=== PATIENT | female | born 1985 | race Caucasian/White ===

== ENCOUNTER → 2017-04-27 | Outpatient (CLI) | payer OTHER ==
--- NOTE | 2017-04-27 11:04 | KCIC ---
OB ultrasound dated 04/27/2017: No comparison available. Clinical Indication: Uterine size discrepancy. Findings: There is a single intrauterine gestation in breech presentation. The placenta is posterior in location and low lying with placental tip estimated at 1.3 to 2 cm from the internal os. Cervical length is estimated at 4.2 cm. CK equals 19.3 cm. Biometrical data is as follows: BPD = 8.9 cm for 35 weeks 6 days. HC = 31.9 cm for 36 weeks 0 days. AC = 31.7 cm for 35 weeks 4 days. FL = 6.9 cm for 35 weeks 1 days. Overall, the estimated sonographic gestational age is 35 weeks 5 days for an estimated date of delivery of 05/27/2017. This is approximately 7 days off the tape estimated by the last menstrual period. Estimated weight is 2707 g. Complete survey was not performed. heart rate 131 bpm Impression: 1. Single viable intrauterine gestation with estimated sonographic gestational age of 35 weeks 5 days. This is approximately one week off the dates estimated by last menstrual. Recommend clinical correlation. 2. Low-lying placenta. Electronically signed by: Mihir Roy MD (04/27/2017 11:01 AM) [facility]
== END | disposition home or self-care (01) ==
LOC: KCIC US 08:06
PROVIDERS: ATTEND Obstetrics & Gynecology
DX: O44.43 Low lying placenta NOS or without hemorrhage, third trimester (principal); Z3A.35 35 weeks gestation of pregnancy
CPT/HCPCS: 76816

== ENCOUNTER 2017-05-31 06:09 | Inpatient (IN) | payer OTHER ==
[~2017-05-31] VITALS: Ht 154.9 cm; Wt 119.7 kg
[2017-05-31] MEDS ORDERED: IV RINGERS,LACTATED 1000ML 1,000 ML IV SCH ×2 (06:10→14:20)
[2017-05-31] MEDS ORDERED: TERBUTALINE 1 MG/ML VIAL. SQ PRN (06:15)
[2017-05-31] MEDS ORDERED: IBUPROFEN 600 MG TABLET. PO PRN (06:15)
[2017-05-31] MEDS ORDERED: OXYTOCIN 30 UNIT/500 ML PREMIX 500 ML IV PRN ×3 (06:15→16:45)
[2017-05-31] MEDS ORDERED: BUTORPHANOL 2 MG/ML VIAL. IV PRN (06:15)
[2017-05-31] MEDS ORDERED: LIDOCAINE 1% PF 30 ML VIAL. INJ PRN (06:15)
[2017-05-31] MEDS ORDERED: ONDANSETRON PF 4 MG/2 ML VIAL. IV PRN (06:15)
[2017-05-31] MEDS ORDERED: 0.9 % SODIUM CHLORIDE 10 ML DISP.SYRIN. IV PRN ×2 (06:15→16:45)
[2017-05-31 06:36] VITALS: BP 130/83
[2017-05-31 07:08] LABS: HEMATOCRIT 39.4 % (36.0-47.0); HEMOGLOBIN 13.4 g/dL (12.0-15.5); RED BLOOD COUNT 4.39 x10^6/uL (3.50-5.40); RED CELL DISTRIBUTION WIDTH 13.3 % (11.5-14.5); WHITE BLOOD COUNT 17.8 x10^3/uL (4.0-11.0)
[2017-05-31 07:11] LABS: BILIRUBIN,URINE NEGATIVE (NEG); GLUCOSE,URINE NEGATIVE (NEG); NITRITE,URINE NEGATIVE (NEG); PROTEIN,URINE NEGATIVE (NEG-TRACE)
[2017-05-31 07:13] LABS: BACTERIA,URINE FEW /HPF (0-FEW); RBC,URINE 0 /HPF (0-2); SQUAMOUS EPITHELIAL CELL,UR OCC /LPF
[2017-05-31 07:17] LABS: BARBITURATES NEG (NEG); BENZODIAZEPINES NEG (NEG); CANNABINOIDS POS (NEG); COCAINE NEG (NEG); METHADONE NEG (NEG); OPIATES NEG (NEG); PHENCYCLIDINE NEG (NEG)
[2017-05-31] MEDS ORDERED: IV RINGERS,LACTATED 1000ML 1,000 ML IV PRN (08:20)
--- NOTE | 2017-05-31 13:00 | PDOC1 ---
OB - History Hx of Present Care: Good Care Ultrasounds: Normal mid trimester US Obstetrical Complications: None Medical Complications: None Other Concerns: obesity Past Family/Social History * Past Medical, Surgical, Family and Obstetric Histories reviewed from chart. Rubella: Immune RPR/VDRL: Negative GBS Status: Negative HBsAG: Negative OB - Chief Complaint & HPI Date of Admission: Date of Admission: May 31, 2017 at 06:09 Chief Complaint/History : 4 Para: 3 EGA: 39 Reason for admission: induction of labor Indication for induction: maternal discomfort, history of rapid labor Admission Nurse Assessment Rev: Yes Problems: OB - Admission Exam Physical Exam Vitals: VS - Last 72 Hours, by Label Date Time Temp Pulse Resp B/P (MAP) Pulse Ox O2 Delivery O2 Flow Rate FiO2 05/31/17 06:36 98.3 86 18 130/83 (99) Room Air 98.3 HEENT: Normal Heart: Regular Rate Lungs: Clear Abdomen: Gravid, Non tender, Soft Extremities: Edema Reflexes: Normal Cervical Dilatation: 1cm Effacement: 25% Station: -3 Membranes: Intact Heart Rate: Normal Accelerations: Accelerations Present Decelerations: No decelerations Contractions on Admission: < 5 Minutes Apart Intensity: Moderate Text A: 39 wks IUP IOL secondary discomforts of P: Admit for IOL pitocin. MORELIA HESS Jr, MD May 31, 2017 13:00
[2017-05-31] MEDS ORDERED: L&D EPIDURAL CASSETTE 100 ML EP PRN (14:30)
[2017-05-31] MEDS ORDERED: ROPIVacaine 0.2% IN 0.9%NACL PF 40 MG/20 ML DISP.SYRIN. EPI PRN (14:30)
[2017-05-31] MEDS ORDERED: BUPIVACAINE MPF 0.25% 10 ML VIAL. EPI PRN (14:30)
[2017-05-31] MEDS ORDERED: NALOXONE 0.4 MG/ML VIAL. IV PRN (14:30)
[2017-05-31] MEDS ORDERED: fentaNYL PF VIAL 100 MCG/2 ML VIAL EPI PRN (14:30)
[2017-05-31] MEDS ORDERED: MAGNESIUM HYDROXIDE 2,400 MG/30 ML ORAL.SUSP. PO PRN (16:45)
[2017-05-31] MEDS ORDERED: DOCUSATE SODIUM 100 MG CAPSULE. PO PRN (16:45)
[2017-05-31] MEDS ORDERED: oxyCODONE/APAP 5/325 1 TAB TABLET PO PRN (16:45)
[2017-05-31] MEDS ORDERED: PHENYLEPH/MINERAL OIL/PETROLAT RECTAL OINTMENT 28GM TUBE. RC PRN (16:45)
[2017-05-31] MEDS ORDERED: BENZOCAINE 20% TOPICAL AEROSOL SPRAY 57GM CAN. TP PRN (16:45)
[2017-05-31] MEDS ORDERED: ZOLPIDEM 5 MG TABLET. PO PRN (16:45)
[2017-05-31] MEDS ORDERED: MAG HYDROX/ALUMINUM HYD/SIMETH 30 ML ORAL.SUSP PO PRN (16:45)
[2017-05-31] MEDS ORDERED: diphenhydrAMINE HCL 25 MG CAPSULE PO PRN (16:45)
[2017-05-31] MEDS ORDERED: SIMETHICONE 80 MG TAB.CHEW PO PRN (16:45)
[2017-05-31] MEDS ORDERED: MMR per PROTOCOL. MC PRN (16:45)
[2017-05-31] MEDS ORDERED: HYDROCORTISONE 1% TOPICAL OINTMENT 30GM TUBE. TP PRN (16:45)
[2017-05-31] MEDS ORDERED: ACETAMINOPHEN 325 MG TABLET. PO PRN (16:45)
--- NOTE | 2017-05-31 16:45 | PDOC ---
VAGINAL DELIVERY DATE DATE: 05/31/17 TIME: 16:44 : 4 Para: 4 EGA: 39 VAGINAL DELIVERY: VTX VACCUM ASSISTED: Yes NUMBER OF PULLS 5 NUMBER OF POP OFFS 3 MAXIMUM PRESSURE 600 mmgh PLACENTA: Spontaneous 8/9 SEX: Male WEIGHT Weight [7 lbs. 4 oz. ] Nuchal Cord: Yes, Times 1 Amniotic Fluid: Clear PAIN: Epidural EPISIOTOMY: No EXTENSION: No EBL 300 ml COMPLICATIONS none CONDITION pt. stable Signs of Intrauterine Infectio: None Shoulder Dystocia: No Problems: MORELIA HESS Jr, MD May 31, 2017 16:45
[2017-05-31 20:49] VITALS: BP 104/54
[2017-05-31] MEDS ORDERED: INFLUENZA VAX SCREEN BY RX. MC ONE (21:00)
[2017-05-31 21:30] VITALS: BP 121/68
[2017-06-01] VITALS (7 sets, daily range): BP systolic 114–126; BP diastolic 61–83
[2017-06-01] MEDS: IBUPROFEN 800 MG TABLET. PO PRN ×2 (03:21→16:39)
[2017-06-01] MEDS ORDERED: INFLUENZA VAX SCREEN BY RX. MC PRN (04:45)
[2017-06-01 07:13] LABS: BASO # 0.1 x10^3/uL (0.0-0.2); BASO % 1 % (0-3); EOS % 3 % (0-3); HEMOGLOBIN 12.2 g/dL (12.0-15.5); LYMPH # 4.3 x10^3/uL (1.0-4.8); LYMPH % 23 % (24-48); MEAN CORPUSCULAR HEMOGLOBIN 31 pg (25-35); MEAN CORPUSCULAR HGB CONC 34 g/dL (31-37); MEAN CORPUSCULAR VOLUME 91 fL (79-100); MONO % 7 % (0-9); NEUT % 67 % (31-73); PLATELET COUNT 326 x10^3/uL (140-400); RED BLOOD COUNT 3.96 x10^6/uL (3.50-5.40); RED CELL DISTRIBUTION WIDTH 13.1 % (11.5-14.5); WHITE BLOOD COUNT 18.6 x10^3/uL (4.0-11.0)
[2017-06-01] MEDS ORDERED: FERROUS SULFATE 325 MG TABLET. PO SCH (08:00)
[2017-06-01] MEDS ORDERED: FLU VACC QS2017-18 (36MOS+)/PF 0.5 ML SYRINGE. VAX IM ONE (09:00)
[2017-06-01] MEDS ORDERED: DIPHTH,PERTUSS(ACELL),TET TOX 0.5 ML DISP.SYRIN. VAX IM ONE (09:00)
[2017-06-01] MEDS ORDERED: NICOTINE 14MG PATCH. TD PRN (10:45)
--- NOTE | 2017-06-01 12:22 | PDOC ---
OB Progress Note Date of Service 06/01/17 Time of Evaluation 1220 Notes Pt. feeling well. No complaints. Lab Laboratory Tests Test 05/31/17 06:30 05/31/17 07:00 06/01/17 06:00 White Blood Count 17.8 x10^3/uL (4.0-11.0) 18.6 x10^3/uL (4.0-11.0) Red Blood Count 4.39 x10^6/uL (3.50-5.40) 3.96 x10^6/uL (3.50-5.40) Hemoglobin 13.4 g/dL (12.0-15.5) 12.2 g/dL (12.0-15.5) Hematocrit 39.4 % (36.0-47.0) 36.0 % (36.0-47.0) Mean Corpuscular Volume 90 fL (79-100) 91 fL (79-100) Mean Corpuscular Hemoglobin 31 pg (25-35) 31 pg (25-35) Mean Corpuscular Hemoglobin Concent 34 g/dL (31-37) 34 g/dL (31-37) Red Cell Distribution Width 13.3 % (11.5-14.5) 13.1 % (11.5-14.5) Platelet Count 373 x10^3/uL (140-400) 326 x10^3/uL (140-400) RPR Titer Additional Testing Negative (Non Reactive) Urine Collection Type Unknown Urine Color Yellow Urine Clarity Cloudy Urine pH 6.0 Urine Specific [place] 1.025 Urine Protein Negative mg/dL (NEG-TRACE) Urine Glucose (UA) Negative mg/dL (NEG) Urine Ketones (Stick) Negative mg/dL (NEG) Urine Blood Negative (NEG) Urine Nitrite Negative (NEG) Urine Bilirubin Negative (NEG) Urine Urobilinogen Dipstick 1.0 mg/dL (0.2 mg/dL) Urine Leukocyte Esterase Large (NEG) Urine RBC 0 /HPF (0-2) Urine WBC 5-10 /HPF (0-4) Urine Squamous Epithelial Cells Occ /LPF Urine Bacteria Few /HPF (0-FEW) Urine Opiates Screen Neg (NEG) Urine Methadone Screen Neg (NEG) Urine Barbiturates Neg (NEG) Urine Phencyclidine Screen Neg (NEG) Urine Amphetamine/Methamphetamine Neg (NEG) Urine Benzodiazepines Screen Neg (NEG) Urine Cocaine Screen Neg (NEG) Urine Cannabinoids Screen Pos (NEG) Urine Ethyl Alcohol Neg (NEG) Neutrophils (%) (Auto) 67 % (31-73) Lymphocytes (%) (Auto) 23 % (24-48) Monocytes (%) (Auto) 7 % (0-9) Eosinophils (%) (Auto) 3 % (0-3) Basophils (%) (Auto) 1 % (0-3) Neutrophils # (Auto) 12.4 x10^3uL (1.8-7.7) Lymphocytes # (Auto) 4.3 x10^3/uL (1.0-4.8) Monocytes # (Auto) 1.2 x10^3/uL (0.0-1.1) Eosinophils # (Auto) 0.5 x10^3/uL (0.0-0.7) Basophils # (Auto) 0.1 x10^3/uL (0.0-0.2) Laboratory Tests Test 06/01/17 06:00 White Blood Count 18.6 x10^3/uL (4.0-11.0) Red Blood Count 3.96 x10^6/uL (3.50-5.40) Hemoglobin 12.2 g/dL (12.0-15.5) Hematocrit 36.0 % (36.0-47.0) Mean Corpuscular Volume 91 fL (79-100) Mean Corpuscular Hemoglobin 31 pg (25-35) Mean Corpuscular Hemoglobin Concent 34 g/dL (31-37) Red Cell Distribution Width 13.1 % (11.5-14.5) Platelet Count 326 x10^3/uL (140-400) Neutrophils (%) (Auto) 67 % (31-73) Lymphocytes (%) (Auto) 23 % (24-48) Monocytes (%) (Auto) 7 % (0-9) Eosinophils (%) (Auto) 3 % (0-3) Basophils (%) (Auto) 1 % (0-3) Neutrophils # (Auto) 12.4 x10^3uL (1.8-7.7) Lymphocytes # (Auto) 4.3 x10^3/uL (1.0-4.8) Monocytes # (Auto) 1.2 x10^3/uL (0.0-1.1) Eosinophils # (Auto) 0.5 x10^3/uL (0.0-0.7) Basophils # (Auto) 0.1 x10^3/uL (0.0-0.2) Medications Current Medications Sodium Chloride (Normal Saline Flush) 3 ml QSHIFT PRN IV AFTER MEDS AND BLOOD DRAWS; Start 05/31/17 at 06:15 Ringer's Solution 1,000 ml @ 125 mls/hr Q8H IV Last administered on 06:52; Start 05/31/17 at 06:10; Stop 05/31/17 at 08:22; Status DC Butorphanol Tartrate (Stadol) 2 mg PRN Q1HR PRN IV Severe labor pain; Start at 06:15 Ondansetron HCl (Zofran) 4 mg PRN Q4HRS PRN IV NAUSEA/VOMITING; Start at 06:15 Terbutaline Sulfate (Brethine) 0.25 mg 1X PRN PRN SQ SEE COMMENTS; Start 05/31 at 06:15; Stop 06/01/17 at 06:14; Status DC Lidocaine HCl 30 ml 1X PRN PRN INJ SEE COMMENTS; Start 05/31/17 at 06:15; Stop 06/02/17 at 06:14 Oxytocin/Sodium Chloride 500 ml @ 0 mls/hr CONT PRN IV SEE I/O RECORD Last administered on 05/31/17 08:17; Start 05/31/17 at 06:15 Oxytocin/Sodium Chloride 500 ml @ 0 mls/hr CONT PRN PRN IV Post delivery bleeding; Start 05/31/17 at 06:15 Ibuprofen (Motrin) 600 mg PRN Q6HRS PRN PO MODERATE PAIN; Start 05/31/17 at 06 :15 Ringer's Solution 1,000 ml @ 125 mls/hr Q8H PRN IV PER PROTOCOL Last administered on 05/31/17 13:10; Start 05/31/17 at 08:20 Ringer's Solution 1,000 ml @ 1,000 mls/hr Q1H IV ; Start 05/31/17 at 14:20; Stop 05/31/17 at 15:19; Status DC Naloxone HCl (Narcan) 0.04 mg PRN Q1MIN PRN IV SEE COMMENTS; Start 05/31/17 at 14:30 Fentanyl Citrate (Fentanyl 2ml Vial) 100 mcg PRN 1X PRN EPI FOR ANESTHESIA; Start 05/31/17 at 14:30; Stop 06/01/17 at 14:29 Bupivacaine HCl (Sensorcaine-Mpf 0.25%) 10 ml PRN 1X PRN EPI FOR ANESTHESIA; Start 05/31/17 at 14:30; Stop 06/01/17 at 14:29 Ropivacaine/ Fentanyl/NS 100 ml @ 12 mls/hr CONT PRN EP PAIN Last administered on 05/31/17 14:31; Start 05/31/17 at 14:30 Ropivacaine/ Sodium Chloride 40 mg PRN 1X PRN EPI SEE COMMENTS Last administered on 05/31/17 14:28; Start 05/31/17 at 14:30; Stop 05/31/17 at 14 :30; Status DC Sodium Chloride (Normal Saline Flush) 10 ml QSHIFT PRN IV AFTER MEDS AND BLOOD DRAWS; Start 05/31/17 at 16:45 Oxytocin/Sodium Chloride 500 ml @ 62.5 mls/hr CONT PRN IV SEE I/O RECORD; Start 05/31/17 at 16:45; Stop 06/01/17 at 00:44; Status DC Acetaminophen (Tylenol) 650 mg PRN Q6HRS PRN PO MILD PAIN / TEMP; Start at 16:45 Ibuprofen (Motrin) 800 mg PRN Q8HRS PRN PO INFLAMMATION/PAIN PREVENTION Last administered on 06/01/17 03:21; Start 05/31/17 at 16:45 Docusate Sodium (Colace) 100 mg PRN BID PRN PO CONSTIPATION; Start 05/31/17 at 16:45 Magnesium Hydroxide (Milk Of Magnesia) 2,400 mg PRN DAILY PRN PO CONSTIPATION; Start 05/31/17 at 16:45 Al Hydroxide/Mg Hydroxide (Mylanta Plus Xs) 30 ml PRN Q4HRS PRN PO HEARTBURN / GAS; Start 05/31/17 at 16:45 Simethicone (Gas-X) 80 mg PRN AFTMEALHC PRN PO GAS / BLOATING; Start 05/31/17 at 16:45 Diphenhydramine HCl (Benadryl) 25 mg PRN Q6HRS PRN PO ITCHING; Start 05/31/17 at 16:45 Benzocaine (Americaine) 1 spray PRN QID PRN TP TOPICAL PAIN; Start 05/31/17 at 16:45 Phenyleph/Shark Oil/Min Oil/Petrol (Preparation H) 1 janice PRN QID PRN RC RECTAL PAIN; Start 05/31/17 at 16:45 Hydrocortisone (Cortaid) 1 janice PRN QID PRN TP PERINEAL PAIN; Start 05/31/17 at 16:45 Ferrous Sulfate (Feosol) 325 mg BIDWMEALS PO ; Start 06/01/17 at 08:00; Stop 06/01/17 at 09:44; Status DC Zolpidem Tartrate (Ambien) 5 mg PRN QHS PRN PO INSOMNIA, MAY REPEAT X1; Start 05/31/17 at 16:45 Info (Do NOT chart on this placeholder) 1 ea 1X PRN PRN MC SEE COMMENTS; Start 05/31/17 at 16:45 Info (Do NOT chart on this placeholder) 1 ea 1X PRN PRN MC SEE COMMENTS; Start 05/31/17 at 16:45 Oxycodone/ Acetaminophen (Percocet 5/325) 2 tab PRN Q4HRS PRN PO MODERATE PAIN , SEVERE PAIN; Start 05/31/17 at 16:45 Info (Do NOT chart on this placeholder) 1 each 1X ONCE MC ; Start 05/31/17 at 21:00; Stop 05/31/17 at 21:01; Status UNV Influenza Virus Vaccine Quadrival (Fluarix Quad [id number] Syringe) 0.5 ml ONCE ONCE VAX IM ; Start 06/01/17 at 09:00; Stop 06/01/17 at 09:01; Status DC Info (Do NOT chart on this placeholder) 1 each PRN 1X PRN MC SEE COMMENTS; Start 06/01/17 at 04:45; Status UNV Diphtheria/ Tetanus/Acell Pertussis (Boostrix) 0.5 ml ONCE ONCE VAX IM ; Start 06/01/17 at 09:00; Stop 06/01/17 at 09:01; Status DC Nicotine (Nicoderm Cq 14mg) 1 patch PRN DAILY PRN TD SMOKING CESSATION Last administered on 06/01/17t 11:06; Start 06/01/17 at 10:45 Exam Abd: soft, non tender, fundus firm Assessment PPD#1 s/p Plan of Care: Continue current Tx, Mgmt MORELIA HESS Jr, MD Jun 01, 2017 12:22
[2017-06-02 06:08] VITALS: BP 119/77
[2017-06-02 11:00] VITALS: BP 125/75
--- NOTE | 2017-06-02 11:48 | PDOC ---
OB Progress Note Date of Service 06/02/17 Time of Evaluation 1145 Notes Pt. feeling well. No complaints. Lab Laboratory Tests Test 06/01/17 06:00 White Blood Count 18.6 x10^3/uL (4.0-11.0) Red Blood Count 3.96 x10^6/uL (3.50-5.40) Hemoglobin 12.2 g/dL (12.0-15.5) Hematocrit 36.0 % (36.0-47.0) Mean Corpuscular Volume 91 fL (79-100) Mean Corpuscular Hemoglobin 31 pg (25-35) Mean Corpuscular Hemoglobin Concent 34 g/dL (31-37) Red Cell Distribution Width 13.1 % (11.5-14.5) Platelet Count 326 x10^3/uL (140-400) Neutrophils (%) (Auto) 67 % (31-73) Lymphocytes (%) (Auto) 23 % (24-48) Monocytes (%) (Auto) 7 % (0-9) Eosinophils (%) (Auto) 3 % (0-3) Basophils (%) (Auto) 1 % (0-3) Neutrophils # (Auto) 12.4 x10^3uL (1.8-7.7) Lymphocytes # (Auto) 4.3 x10^3/uL (1.0-4.8) Monocytes # (Auto) 1.2 x10^3/uL (0.0-1.1) Eosinophils # (Auto) 0.5 x10^3/uL (0.0-0.7) Basophils # (Auto) 0.1 x10^3/uL (0.0-0.2) Medications Current Medications Sodium Chloride (Normal Saline Flush) 3 ml QSHIFT PRN IV AFTER MEDS AND BLOOD DRAWS; Start 05/31/17 at 06:15 Ringer's Solution 1,000 ml @ 125 mls/hr Q8H IV Last administered on t 06:52; Start 05/31/17 at 06:10; Stop 05/31/17 at 08:22; Status DC Butorphanol Tartrate (Stadol) 2 mg PRN Q1HR PRN IV Severe labor pain; Start at 06:15 Ondansetron HCl (Zofran) 4 mg PRN Q4HRS PRN IV NAUSEA/VOMITING; Start at 06:15 Terbutaline Sulfate (Brethine) 0.25 mg 1X PRN PRN SQ SEE COMMENTS; Start 05/31 at 06:15; Stop 06/01/17 at 06:14; Status DC Lidocaine HCl 30 ml 1X PRN PRN INJ SEE COMMENTS; Start 05/31/17 at 06:15; Stop 06/02/17 at 06:14; Status DC Oxytocin/Sodium Chloride 500 ml @ 0 mls/hr CONT PRN IV SEE I/O RECORD Last administered on 05/31/17 08:17; Start 05/31/17 at 06:15 Oxytocin/Sodium Chloride 500 ml @ 0 mls/hr CONT PRN PRN IV Post delivery bleeding; Start 05/31/17 at 06:15 Ibuprofen (Motrin) 600 mg PRN Q6HRS PRN PO MODERATE PAIN; Start 05/31/17 at 06 :15 Ringer's Solution 1,000 ml @ 125 mls/hr Q8H PRN IV PER PROTOCOL Last administered on 05/31/17 13:10; Start 05/31/17 at 08:20 Ringer's Solution 1,000 ml @ 1,000 mls/hr Q1H IV ; Start 05/31/17 at 14:20; Stop 05/31/17 at 15:19; Status DC Naloxone HCl (Narcan) 0.04 mg PRN Q1MIN PRN IV SEE COMMENTS; Start 05/31/17 at 14:30 Fentanyl Citrate (Fentanyl 2ml Vial) 100 mcg PRN 1X PRN EPI FOR ANESTHESIA; Start 05/31/17 at 14:30; Stop 06/01/17 at 14:29; Status DC Bupivacaine HCl (Sensorcaine-Mpf 0.25%) 10 ml PRN 1X PRN EPI FOR ANESTHESIA; Start 05/31/17 at 14:30; Stop 06/01/17 at 14:29; Status DC Ropivacaine/ Fentanyl/NS 100 ml @ 12 mls/hr CONT PRN EP PAIN Last administered on 05/31/17 14:31; Start 05/31/17 at 14:30 Ropivacaine/ Sodium Chloride 40 mg PRN 1X PRN EPI SEE COMMENTS Last administered on 05/31/17 14:28; Start 05/31/17 at 14:30; Stop 05/31/17 at 14 :30; Status DC Sodium Chloride (Normal Saline Flush) 10 ml QSHIFT PRN IV AFTER MEDS AND BLOOD DRAWS; Start 05/31/17 at 16:45 Oxytocin/Sodium Chloride 500 ml @ 62.5 mls/hr CONT PRN IV SEE I/O RECORD; Start 05/31/17 at 16:45; Stop 06/01/17 at 00:44; Status DC Acetaminophen (Tylenol) 650 mg PRN Q6HRS PRN PO MILD PAIN / TEMP; Start at 16:45 Ibuprofen (Motrin) 800 mg PRN Q8HRS PRN PO INFLAMMATION/PAIN PREVENTION Last administered on 06/01/17t 16:39; Start 05/31/17 at 16:45 Docusate Sodium (Colace) 100 mg PRN BID PRN PO CONSTIPATION; Start 05/31/17 at 16:45 Magnesium Hydroxide (Milk Of Magnesia) 2,400 mg PRN DAILY PRN PO CONSTIPATION; Start 05/31/17 at 16:45 Al Hydroxide/Mg Hydroxide (Mylanta Plus Xs) 30 ml PRN Q4HRS PRN PO HEARTBURN / GAS; Start 05/31/17 at 16:45 Simethicone (Gas-X) 80 mg PRN AFTMEALHC PRN PO GAS / BLOATING; Start 05/31/17 at 16:45 Diphenhydramine HCl (Benadryl) 25 mg PRN Q6HRS PRN PO ITCHING; Start 05/31/17 at 16:45 Benzocaine (Americaine) 1 spray PRN QID PRN TP TOPICAL PAIN; Start 05/31/17 at 16:45 Phenyleph/Shark Oil/Min Oil/Petrol (Preparation H) 1 janice PRN QID PRN RC RECTAL PAIN; Start 05/31/17 at 16:45 Hydrocortisone (Cortaid) 1 janice PRN QID PRN TP PERINEAL PAIN; Start 05/31/17 at 16:45 Ferrous Sulfate (Feosol) 325 mg BIDWMEALS PO ; Start 06/01/17 at 08:00; Stop 06/01/17 at 09:44; Status DC Zolpidem Tartrate (Ambien) 5 mg PRN QHS PRN PO INSOMNIA, MAY REPEAT X1; Start 05/31/17 at 16:45 Info (Do NOT chart on this placeholder) 1 ea 1X PRN PRN MC SEE COMMENTS; Start 05/31/17 at 16:45 Info (Do NOT chart on this placeholder) 1 ea 1X PRN PRN MC SEE COMMENTS; Start 05/31/17 at 16:45 Oxycodone/ Acetaminophen (Percocet 5/325) 2 tab PRN Q4HRS PRN PO MODERATE PAIN , SEVERE PAIN; Start 05/31/17 at 16:45 Info (Do NOT chart on this placeholder) 1 each 1X ONCE MC ; Start 05/31/17 at 21:00; Stop 05/31/17 at 21:01; Status UNV Influenza Virus Vaccine Quadrival (Fluarix Quad [id number] Syringe) 0.5 ml ONCE ONCE VAX IM Last administered on 06/01/17 20:05; Start 06/01/17 at 09:00; Stop 06/01/17 at 09:01; Status DC Info (Do NOT chart on this placeholder) 1 each PRN 1X PRN MC SEE COMMENTS; Start 06/01/17 at 04:45; Status UNV Diphtheria/ Tetanus/Acell Pertussis (Boostrix) 0.5 ml ONCE ONCE VAX IM Last administered on 06/01/17 20:04; Start 06/01/17 at 09:00; Stop 06/01/17 at 09 :01; Status DC Nicotine (Nicoderm Cq 14mg) 1 patch PRN DAILY PRN TD SMOKING CESSATION Last administered on 06/01/17 11:06; Start 06/01/17 at 10:45 Exam Abd: soft, non tender, fundus firm Assessment PPD#2 s/p Plan of Care: See new orders (D/c home.) MORELIA HESS Jr, MD Jun 02, 2017 11:47
--- NOTE | 2017-06-02 11:48 | DISCH ---
DISCHARGE INSTRUCTIONS Condition on Discharge Condition on Discharge: Stable Activity After Discharge Activity Instructions for Disc: Activity as tolerated Lifting Instructions after Dis: No heavy lifting Driving Instructions after Dis: Do not drive today Diet after Discharge Diet after Discharge: Regular Contacting the DRFrancoise after DC Call your doctor for: Concerns you may have Follow-Up Follow up with: Dr. Milian in 4 weeks. MORELIA MILIAN Jr, MD Jun 02, 2017 11:48
[2017-06-02] MEDS ORDERED: IBUP-1060 PO (11:51)
--- NOTE | 2017-07-06 18:59 | DS ---
DATE OF DISCHARGE: 06/02/2017 ADMITTING DIAGNOSIS: Term gestation. DISCHARGE DIAGNOSIS: Term gestation. SURGEON: Tho Milian MD PROCEDURE: Spontaneous vaginal delivery. HOSPITAL COURSE: Term gestation, presented in active labor, delivered vaginally without any complications. The patient went home on day #2 in good condition. DISCHARGE DIET: Regular diet. DISCHARGE INSTRUCTIONS: Pelvic rest x 6 weeks. FOLLOWUP: The patient will follow up in clinic in 6 weeks. THO MILIAN MD DR: CHANTELL/kristine JOB#: [id number] / [id number]
== END 2017-06-02 14:22 | disposition home or self-care (01) | DRG 775 ==
LOC: 3 SO LND 06:09 → 3 NORTH 20:15
PROVIDERS: ADMIT Obstetrics & Gynecology; ATTEND Obstetrics & Gynecology
PROC: 10E0XZZ Delivery of Products of Conception, External Approach (ICD-10-PCS; principal; 2017-06-01)
PROC: 3E0R3BZ Introduction of Anesthetic Agent into Spinal Canal, Percutaneous Approach (ICD-10-PCS; 2017-06-01)
PROC: 00HU33Z Insertion of Infusion Device into Spinal Canal, Percutaneous Approach (ICD-10-PCS; 2017-06-01)
DX: O99.214 Obesity complicating childbirth (principal); Z68.42 Body mass index [BMI] 45.0-49.9, adult; E66.9 Obesity, unspecified; O69.81X0 Labor and delivery complicated by cord around neck, without compression, not applicable or unspecified; Z3A.39 39 weeks gestation of pregnancy; Z37.0 Single live birth
CPT/HCPCS: 36415; 80307; 81001; 85025; 85027; 86593; 86850; 86900; 86901; 87086; 90686; 90715; J2590; J2795; J7120; G0479

== ENCOUNTER → 2017-08-04 | Day surgery (SDC) | payer OTHER ==
[~2017-08-04] MED LIST: DESFLURANE 16 TO 30 MINUTES. IH; DEXAMETHASONE SOD PHOS 20 MG/5 ML VIAL.; GLYCOPYRROLATE 1 MG/5 ML VIAL.; HYDROmorphone 2 MG/ML VIAL IV; LIDOCAINE 1% PF 2 ML VIAL. ID; LIDOCAINE 1% PF 5 ML VIAL.; MORPHINE SULFATE 2 MG/ML DISP.SYRIN. IV; NEOSTIGMINE 10 MG/10 ML VIAL.; ONDANSETRON PF 4 MG/2 ML VIAL.; ONDANSETRON PF 4 MG/2 ML VIAL. IV; PROCHLORPERAZINE 10 MG/2 ML VIAL. IV; PROPOFOL 20 ML IV; ROCURONIUM 50 MG/5 ML VIAL.; fentaNYL PF VIAL 100 MCG/2 ML VIAL; fentaNYL PF VIAL 100 MCG/2 ML VIAL IV
[2017-08-04] MEDS: IV RINGERS,LACTATED 1000ML 1,000 ML IV (09:16)
[2017-08-04 09:29] LABS: NEG OBC UR NEG; POS OBC UR POS; U PREG PATIENT NEGATIVE (NEG)
[2017-08-04] MEDS: BUPIVAC MPF-EPI 0.75%-1:200000 30 ML VIAL. (11:17)
[2017-08-04] MEDS: oxyCODONE/APAP 5/325 1 TAB TABLET PO (11:53)
== END | disposition home or self-care (01) ==
LOC: SURG 08:47
DX: Z30.2 Encounter for sterilization (principal); E66.9 Obesity, unspecified; M19.90 Unspecified osteoarthritis, unspecified site; Z72.0 Tobacco use
CPT/HCPCS: 58671; 81025; A4215; J1100; J2405; J2704; J2710; J3010; J3490

== ENCOUNTER 2019-04-06 22:06 | Emergency (ER) | payer BC, OTHER ==
[~2019-04-06] VITALS: Ht 157.5 cm; Wt 117.9 kg
[~2019-04-06 22:06] MED LIST changes: -DESFLURANE 16 TO 30 MINUTES. IH; -DEXAMETHASONE SOD PHOS 20 MG/5 ML VIAL.; -GLYCOPYRROLATE 1 MG/5 ML VIAL.; -HYDROmorphone 2 MG/ML VIAL IV; +IBUP-1060 PO; -LIDOCAINE 1% PF 2 ML VIAL. ID; -LIDOCAINE 1% PF 5 ML VIAL.; -MORPHINE SULFATE 2 MG/ML DISP.SYRIN. IV; -NEOSTIGMINE 10 MG/10 ML VIAL.; -ONDANSETRON PF 4 MG/2 ML VIAL.; -ONDANSETRON PF 4 MG/2 ML VIAL. IV; +OXYC1TAB15 PO; -PROCHLORPERAZINE 10 MG/2 ML VIAL. IV; -PROPOFOL 20 ML IV; -ROCURONIUM 50 MG/5 ML VIAL.; -fentaNYL PF VIAL 100 MCG/2 ML VIAL; -fentaNYL PF VIAL 100 MCG/2 ML VIAL IV
[2019-04-06 22:24] VITALS: BP 142/86
[2019-04-06] MEDS ORDERED: HYDR-2759 PO (22:35)
[2019-04-06] MEDS ORDERED: PENI500T PO (22:35)
--- NOTE | 2019-04-06 22:35 | PHYS DOC ---
Past Medical History Past Medical History: No Pertinent History Past Surgical History: Tubal ligation Alcohol Use: None Drug Use: None Adult General Chief Complaint Chief Complaint: DENTAL PROBLEM HPI HPI Patient is a 33 year old female who presents with left lower mandible pain with dental pain/tenderness �2 weeks. Reports pain with mastication. No dysphonia and dysphagia, drooling or trismus. Patient has not contacted a dentist. No other acute symptoms or complaints.[] Review of Systems Review of Systems Review of symptoms as per history of present illness. All other reviews All other systems were reviewed and found to be within normal limits, except as documented in this note. Allergies Allergies Allergies Coded Allergies Type Severity Reaction Last Updated Verified No Known Drug Allergies 08/04/17 No Physical Exam Physical Exam Constitutional: Well developed, well nourished, no acute distress, non-toxic appearance. [] HENT: Normocephalic, atraumatic, bilateral external ears normal, oropharynx moist, lower posterior mandible/premolar dental pain, tenderness, minimal gingival swelling, appreciable soft tissue abscess, no dysphonia drooling or trismus., nose normal. [] Eyes: PERRLA, EOMI, conjunctiva normal, no discharge. [] Neck: Normal range of motion, no tenderness, supple, no stridor. Submandibular lymphadenopathy present[] Current Patient Data Vital Signs Vital Signs Date Time Temp Pulse Resp B/P (MAP) Pulse Ox O2 Delivery O2 Flow Rate FiO2 04/06/19 22:24 98.8 81 18 142/86 (104) 95 Room Air 98.8 EKG EKG [] Radiology/Procedures Radiology/Procedures [] Course & Med Decision Making Course & Med Decision Making Pertinent Labs and Imaging studies reviewed. (See chart for details) [Supportive care recommended with close follow-up.] Dragon Disclaimer Dragon Disclaimer This electronic medical record was generated, in whole or in part, using a voice recognition dictation system. Departure Departure Impression: Primary Impression: Pain due to dental caries Disposition: 01 HOME, SELF-CARE Condition: GOOD Referrals: WOLF RUFFIN MD (PCP) Patient Instructions: Dental Caries Additional Instructions: Please take medications as directed and follow up with local dentist as soon as possible. Scripts Hydrocodone/Acetaminophen (Hydrocodone-Acetamin 5-325 mg) 1 Each Tablet 1 EACH PO Q6-8HRS PRN for PAIN, #10 TAB Prov: SHARRON ROMERO DO 04/06/19 Penicillin V Potassium (PENICILLIN V POTASSIUM) 500 Mg Tablet 1 TAB PO QID, #40 TAB Prov: SHARRON ROMERO DO 04/06/19 SHARRON ROMERO DO Apr 06, 2019 22:35
== END 2019-04-06 22:45 | disposition home or self-care (01) ==
LOC: ER 22:06
DX: K02.9 Dental caries, unspecified (principal); K08.89 Other specified disorders of teeth and supporting structures
CPT/HCPCS: 99283